=== PATIENT | male | born 1990 | race African-American/Black ===

== ENCOUNTER 2021-10-04 05:23 | Day surgery (SDC) | payer OTHER ==
[2021-10-04] VITALS (7 sets, daily range): BP systolic 129–149; BP diastolic 70–101
[~2021-10-04] VITALS: Ht 174 cm; Wt 93.4 kg
[~2021-10-04 05:23] MED LIST: ringers solution, lacted 1,000 ML IV SCH
[2021-10-04] MEDS ORDERED: famotidine 20mg tablet PO ONE (05:30)
[2021-10-04] MEDS ORDERED: ceFAZolin 2gm in dextrose, iso 50 ML IV ONE (05:30)
[2021-10-04] MEDS ORDERED: NO HOME MEDS (06:42)
[2021-10-04] MEDS ORDERED: cloNIDine hcl/PF 100mcg/ml inj ONE (07:12)
[2021-10-04 07:20] LABS: BASOPHILS % (AUTO) 0.5 % (0-1); EOSINOPHILS # (AUTO) 0.1 X10'3 (0-0.9); EOSINOPHILS % (AUTO) 1.9 % (0-6); LYMPHOCYTES # (AUTO) 1.8 X10'3 (1.1-4.8); LYMPHOCYTES % (AUTO) 39.7 % (21-51); MEAN CORPUSCULAR HEMOGLOBIN 29.3 PG (27.0-31.0); MEAN CORPUSCULAR HGB CONC 33.6 g/dL (33.0-36.5); MEAN CORPUSCULAR VOLUME 87.2 FL (78-98); MEAN PLATELET VOLUME 9.6 FL (7.4-10.4); MONOCYTES # (AUTO) 0.3 X10'3 (0-0.9); MONOCYTES % (AUTO) 7.8 % (2-12); NEUTROPHILS # (AUTO) 2.2 X10'3 (1.8-7.7); NEUTROPHILS % (AUTO) 50.1 % (42-75); PRE OP HEMATOCRIT 38.4 % (42.0-52.0); PRE OP HEMOGLOBIN 12.9 g/dL (14.0-17.9); PRE OP PLATELET COUNT 164 X10'3 (140-440); RED CELL DISTRIBUTION WIDTH 13.2 % (11.5-14.5)
[2021-10-04 07:49] LABS: ALBUMIN 3.6 G/DL (3.4-5.0); ALKALINE PHOSPHATASE 66 IU/L (46-116); BLOOD UREA NITROGEN 13 MG/DL (7-18); CALCIUM 8.4 MG/DL (8.5-10.1); CHLORIDE 108 MMOL/L (99-107); CREATININE 0.93 MG/DL (0.60-1.10); PRE OP ANION GAP 10 (8-16); PRE OP BILIRUB, TOTAL 0.3 MG/DL (0.0-1.0); PRE OP GLUCOSE 102 MG/DL (70-104); PRE OP SODIUM 141 MMOL/L (135-145); TOTAL CARBON DIOXIDE 23.2 MMOL/L (24-32); TOTAL PROTEIN 7.1 G/DL (6.4-8.2); eGFR > 90 ML/MIN
[2021-10-04] MEDS ORDERED: fentaNYL/PF 50MCG/1 ML 2ML syringe ONE (07:49)
[2021-10-04] MEDS ORDERED: midazolam 1 mg/ML 2ml injection ONE (07:50)
[2021-10-04 07:51] LABS: PRE OP AST 170 U/L (10-37)
[2021-10-04 07:52] LABS: PRE OP ALT 263 U/L (30-65)
[2021-10-04] MEDS ORDERED: ROPIVAcaine 0.5% (5mg/ml) 30ml vial ONE (08:36)
[2021-10-04] MEDS ORDERED: propofol inj 20 ML IV ONE ×2 (08:36)
[2021-10-04] MEDS ORDERED: LIDOcaine 2% (20mg/ml) 5ml vial ONE (08:36)
[2021-10-04] MEDS ORDERED: dexamethasone sod phosphate 4mg/ml inj. ONE ×2 (08:36)
[2021-10-04] MEDS ORDERED: ondansetron/PF 4mg/2ml inj ONE (08:36)
[2021-10-04] MEDS ORDERED: vancomycin 1,000mg inj ONE (08:48)
[2021-10-04] MEDS ORDERED: morphine 4 MG/ML inj SYRINge IV PRN (10:00)
[2021-10-04] MEDS ORDERED: proCHLORperazine 10 MG/2 ml inj IV PRN (10:00)
[2021-10-04] MEDS ORDERED: ringers solution, lacted 1,000 ML IV SCH (10:00)
[2021-10-04] MEDS ORDERED: morphine 2 MG/ML inj. syringe IV PRN (10:00)
[2021-10-04] MEDS ORDERED: labetalol 20mg/4ml (5mg/ml) syringe IV PRN (10:00)
[2021-10-04] MEDS ORDERED: meperidine/PF 25mg/ml syringe IV PRN ×3 (10:00)
[2021-10-04] MEDS ORDERED: ondansetron/PF 4mg/2ml inj IV PRN (10:00)
[2021-10-04] MEDS ORDERED: acetaminophen 1,000mg/100ml IV 100 ML IV PRN (10:00)
[2021-10-04] MEDS ORDERED: ketorolac trometh. 30mg/ml inj. IV ONE (10:00)
[2021-10-04] MEDS ORDERED: hydrALAZINE 20mg/ml inj. IV PRN (10:00)
--- NOTE | 2021-10-04 10:12 | NUR ---
Received from OR via [facility] , accompanied by Anesthesiologist DR. MURRY and report given by Anesthesiolgist. PT DROWSY, RESPONSIVE TO VERBAL STIMULI. LEZAMA X3 AND FOLLOWS COMMANDS. FEELS SLIGHT SENSATION TO R UPPER ARM. WARM TO TOUGH TO RUE AND FINGERS. PT DENIES PAIN. Addendum: 10/04/21 at 1022 by Diony Eastman RN Amended: Links added.
--- NOTE | 2021-10-04 11:12 | NUR ---
ALL DISCHARGE CRITERIA HAS BEEN MET. VSS, PAIN AT A TOLERABLE LEVEL, VOIDING AND ABLE TO SAFELY AMBULATE AND TRANSFER SELF WITH 2 DIRECTOR HRIS GUARDS PRESENT DURING STAY IN PACU AND TRANSFER OUT VIA LAW VEHICLE. IV TAKEN OUT WITHOUT ANY COMPLICATIONS. ALL DISCHARGE INSTRUCTIONS COVERED WITH PATIENT AND ALL QUESTIONS ANSWERED. PATIENT TAKEN OUT VIA WHEELCHAIR TO LAW VEHICLE WITH GUARDS Addendum: 10/04/21 at 1118 by Diony Eastman RN Amended: Links added.
== END 2021-10-04 11:12 ==
LOC: EDSEX 05:23 → PAS 05:23 → EEVIPCON 07:30 → PAS 11:12
PROVIDERS: ATTEND Orthopaedic Surgery
DX: S62.322A Displaced fracture of shaft of third metacarpal bone, right hand, initial encounter for closed fracture (principal); G89.18 Other acute postprocedural pain; Z79.899 Other long term (current) drug therapy; Z20.822 Contact with and (suspected) exposure to COVID-19; Z87.891 Personal history of nicotine dependence; X58.XXXA Exposure to other specified factors, initial encounter; Y93.89 Activity, other specified; Y92.89 Other specified places as the place of occurrence of the external cause; Y99.8 Other external cause status
CPT/HCPCS: 26615; 36415; 64417; 76942; 80053; 82948; 85025; 87635; 93005; A6222; C1713; C9803; J0735; J1100; J2250; J2405; J2704; J2795; J3010; J3370; J3490; J7030; J7120; Z7506; Z7508; Z7512; A4618; A6449; A7000